=== PATIENT | male | born 1935 | race Caucasian/White ===

== ENCOUNTER → 2017-06-28 | Outpatient (CLI) | payer MEDICARE ==
[~2017-06-28] MED LIST: EC NAPROSYN500 MG PO; FELODIPINE 5 MG PO; LEVOTHYROXIN0.075 M1 PO; TERAZOSIN5 MG PO
--- NOTE | 2017-06-29 09:55 | RADIOLOGY REPORT PS360 ---
MRI-L-SPINE W/O HISTORY: Low back pain with bilateral leg pain and numbness and tingling LOW BACK PAIN ORDERING PHYSICIAN: DOMI BUTLER CRNA PATIENT AGE: 81 years COMPARISON: Radiograph 11/18/2011 TECHNIQUE: Standard multiplanar multiecho sequences are performed without contrast. 3-D MIP and myelographic images are also rendered and reviewed FINDINGS: There is straightening of the lumbar lordosis with normal alignment. Spinal cord ends at the L1 level. There is mild lower lumbar scoliosis convex right measuring 12 degrees. Multilevel lumbar spondylosis is present with degenerative disc disease bulging disc and facet arthritic changes as detailed below. T12-L1 and L1-L2: Mild degenerative disc disease with mild facet ligamentum flavum hypertrophy. L2-L3: Degenerative disc disease. 4 mm retrolisthesis of L2. Bulging disc along with facet and ligamentum flavum hypertrophy with transverse canal stenosis of 9 mm. Bulging disc is slightly eccentric toward the left. There is severe bilateral lateral recess narrowing and moderate bilateral foraminal narrowing. The bulging disc is eccentric towards the left. L3-L4 degenerative disc disease with endplate irregularities and bulging disc with severe facet and uncovertebral hypertrophy on the left severe left-sided foraminal narrowing and moderate right-sided foraminal narrowing. Moderate to severe left lateral recess narrowing. L4-5: Degenerative disc disease with endplate irregularity and bulging disc along with small central disc protrusion/disc osteophyte complex. Severe facet hypertrophic change with severe bilateral foraminal narrowing. L5-S1: 6 mm anterolisthesis of L5 with bulging disc and degenerative disc disease at L5-S1 with severe bilateral foraminal narrowing.. Incidental note made of hemangioma at L3 measuring 2.5 cm. Multiple bilateral renal cysts are present. IMPRESSION: 1. Abnormal MRI of the lumbar spine with severe lumbar spondylosis with multilevel degenerative disc disease and facet arthritic change with varying levels of foraminal and lateral recess narrowing as detailed at each level above. Please see above for detailed description. There is canal stenosis at L2-L3. 2. No disc herniation apparent. No acute fracture.
== END ==
LOC: RAD 14:13
DX: M54.5 Low back pain (principal)

== ENCOUNTER → 2017-08-16 | Day surgery (SDC) | payer MEDICARE ==
[~2017-08-16] VITALS: Ht 172.7 cm; Wt 72.6 kg
[2017-08-16 13:06] VITALS: BP 140/68
[2017-08-16 13:23] VITALS: BP 168/92
[2017-08-16 13:24] VITALS: BP 154/88
--- NOTE | 2017-08-16 13:28 | Procedure Note ---
Procedure detail Date of procedure: 08/16/17 Anesthesiologist: Wale Caro Complications: None Pre-procedure diagnosis: Degenerative disease lumbar spine multiple levels. Multilevel lumbar facet arthropathy. Lumbar spondylosis. Post-procedure diagnosis: Same. Indications for procedure: Very pleasant 81-year-old white male returns our pain clinic today after receiving lumbar MRI. I reviewed his imaging. Patient has severe degenerative disc disease lumbar spine multiple levels. Also, multilevel lumbar facet arthropathy. Lumbar spondylosis. Also, lumbar postlaminectomy syndrome. Patient describes his low back pain as constant, dull, aching. He rates the pain 8/10. Patient also reports pain intensifies with flexion, extension, LEFT and RIGHT rotation. Patient has failed conservative measures such as physical therapy, patient care coordinator, nonsteroidal anti-inflammatory drugs. Procedure detail: Informed consent was obtained and the risk and benefits of the procedure was explained to the patient. Patient was taken to the procedure room where noninvasive monitors were placed, including noninvasive blood pressure cuff as well as pulse oximeter. The area over the lumbar spine was cleansed using chlorhexidine as a cleansing solution. I anesthetized the skin and subcutaneous tissues with 1% Lidocaine. I placed 22-gauge spinal needles into the facet joint / medial branches of [L3-L4, L4-L5, and L5-S1] bilaterally. Needle placement was confirmed with fluoroscopy. After confirmation of needle placement, each site was injected with 1 mL of 1% lidocaine and 0.25 % Marcaine and 10 mg of Depo- Medrol. A total of 80 mg of depo medrol was used for bilateral medial branch blocks of [L3-L4, L4-L5, and L5-S1] bilaterally. Patient tolerated the procedure without difficulty. There were no complications. Plan and disposition: Patient was reevaluated 10 minutes postprocedure. Patient reports 90 percent improvement terms of his lumbar back pain. He'll return to see us in the pain clinic for further evaluation. at [id number]
[2017-08-16 13:36] VITALS: BP 143/71
== END ==
LOC: PM 12:52
PROC: 3E0T33Z Introduction of Anti-inflammatory into Peripheral Nerves and Plexi, Percutaneous Approach (ICD-10-PCS; principal; 2017-08-16)
PROC: 3E0T3BZ Introduction of Anesthetic Agent into Peripheral Nerves and Plexi, Percutaneous Approach (ICD-10-PCS; 2017-08-16)
PROC: BR161ZZ Fluoroscopy of Lumbar Facet Joint(s) using Low Osmolar Contrast (ICD-10-PCS; 2017-08-16)
DX: M51.36 Other intervertebral disc degeneration, lumbar region (principal); M12.88 Other specific arthropathies, not elsewhere classified, other specified site; M47.896 Other spondylosis, lumbar region; M96.1 Postlaminectomy syndrome, not elsewhere classified
CPT/HCPCS: J1040

== ENCOUNTER 2017-11-04 09:11 | Day surgery (SDC) | payer MEDICARE ==
[~2017-11-04] VITALS: Ht 172.7 cm; Wt 71.2 kg
[~2017-11-04 09:11] MED LIST changes: +GABAPENTIN300 M1 PO
[2017-11-04 09:20] VITALS: BP 137/84
[2017-11-04 09:43] VITALS: BP 137/84
[2017-11-04 09:44] VITALS: BP 119/64
--- NOTE | 2017-11-04 09:59 | Procedure Note ---
Procedure detail Date of procedure: 11/04/17 Anesthesiologist: Wale Caro Complications: None Pre-procedure diagnosis: Degenerative disease lumbar spine multiple levels. Lumbar facet arthropathy. Lumbar spondylosis. Post-procedure diagnosis: Same. Indications for procedure: Very pleasant 82-year-old white male the head responded extremely well to medial branch blocks/facet blocks lumbar spine L3-4, L4-5, L5-S1. Patient presents today for RFA lumbar spine. We will begin on the RIGHT at L4-5 and L5-S1. Procedure detail: The procedure was explained to the patient in detail. Consent form was signed. Patient was taken back to the procedure room, where noninvasive monitors were placed. This included noninvasive blood pressure cuff and pulse oximeter. The patient was placed prone on the C-arm table. The area over the lumbar spine was cleansed using chlorhexidine as cleansing solution. Using fluoroscopy guidance, markers were placed over the pedicle at the RIGHT L4-5, L5-S1. 1% Lidocaine was used to anesthetize the skin with a 25-gauge needle at these markers. Using fluoroscopy guidance the radiofrequency probe was used to access the superior margin of the pedicle at RIGHT L4-5, L5-S1. After negative motor stimulation, 2 mls of 0.25% Marcaine and 10 mg of Depo-Medrol were injected into each needle. We then proceeded with radial frequency ablation at all 3 levels at 80 degrees Celsius 60 seconds. After the lesion was formed the needles were withdrawn. Band-Aids were applied. The patient tolerated the procedure without difficulty. There were no complications Plan and disposition: Patient was reevaluated 10 minutes post procedure. He's doing very well. He will return in 2 weeks for LEFT side RFA L4-5, L5-S1 at [id number]
[2017-11-04 10:05] VITALS: BP 139/62
== END 2017-11-04 10:07 | disposition home or self-care (01) ==
LOC: PM 09:11
PROC: 3E0T3TZ Introduction of Destructive Agent into Peripheral Nerves and Plexi, Percutaneous Approach (ICD-10-PCS; principal; 2017-11-04)
PROC: BR161ZZ Fluoroscopy of Lumbar Facet Joint(s) using Low Osmolar Contrast (ICD-10-PCS; 2017-11-04)
DX: M51.36 Other intervertebral disc degeneration, lumbar region (principal); M54.06 Panniculitis affecting regions of neck and back, lumbar region; M47.896 Other spondylosis, lumbar region
CPT/HCPCS: J1030